=== PATIENT | female | born 1945 | race Caucasian/White ===

== ENCOUNTER 2016-06-30 09:02 | Outpatient (CLI) | payer OTHER | END 2016-06-30 19:45 | disposition home or self-care (01) | LOC: SRD 09:02 | PROVIDERS: ATTEND Internal Medicine | DX: M17.0 Bilateral primary osteoarthritis of knee (principal) | CPT/HCPCS: 73560-TC ==

== ENCOUNTER 2018-03-13 13:33 | Outpatient (CLI) | payer OTHER | END 2018-03-13 19:00 | disposition home or self-care (01) | LOC: SRD 13:33 | PROVIDERS: ATTEND Internal Medicine | DX: M17.0 Bilateral primary osteoarthritis of knee (principal); M25.561 Pain in right knee; M25.562 Pain in left knee ==

== ENCOUNTER 2019-03-07 09:24 | Outpatient (CLI) | payer OTHER | END 2019-03-07 20:17 | disposition home or self-care (01) | LOC: SMA 09:24 | PROVIDERS: ATTEND Internal Medicine | DX: M17.0 Bilateral primary osteoarthritis of knee (principal); M54.30 Sciatica, unspecified side; I70.0 Atherosclerosis of aorta; Z85.3 Personal history of malignant neoplasm of breast | CPT/HCPCS: 72110; 77066 ==

== ENCOUNTER 2021-07-20 10:26 | Outpatient (CLI) | payer OTHER | END 2021-07-20 19:08 | disposition home or self-care (01) | LOC: SRD 10:26 | PROVIDERS: ATTEND Internal Medicine | DX: M47.812 Spondylosis without myelopathy or radiculopathy, cervical region (principal); M48.02 Spinal stenosis, cervical region; M19.012 Primary osteoarthritis, left shoulder; R92.1 Mammographic calcification found on diagnostic imaging of breast; M79.89 Other specified soft tissue disorders; I51.7 Cardiomegaly; I70.90 Unspecified atherosclerosis; M54.2 Cervicalgia; M25.512 Pain in left shoulder | CPT/HCPCS: 72050-TC; 73030; 77066 ==